=== PATIENT | male | born 1980 | race Caucasian/White ===

== ENCOUNTER 2020-09-30 19:13 | Inpatient (IN) | payer BC ==
[2020-09-30] MEDS ORDERED: Ondansetron 4 MG/2 ML SDV IVPUSH PRN (19:53)
[2020-09-30] MEDS ORDERED: Naloxone 0.4 MG/ML SDV IVPUSH PRN (20:08)
[2020-09-30] MEDS: Dextrose 5%-Lactated Ringers 1,000 ML IV SCH (20:38)
[2020-09-30] MEDS: HYDROmorphone/Normal Saline 15 MG/30 ML PCA IV PRN (21:01)
[2020-09-30] MEDS: Gabapentin 300 MG Cap PO SCH (22:15)
[2020-10-01] MEDS: Dextrose 5%-Lactated Ringers 1,000 ML IV SCH ×2 (04:11→10:40)
[2020-10-01] MEDS ORDERED: SUMAtriptan 50 MG Tab PO PRN ×2 (07:26→14:27)
--- NOTE | 2020-10-01 07:27 | PCM.HP.2 ---
H&P History of Present Illness - General Date of Service: 10/01/20 Source of Information: Patient History Limitations: Reports: No Limitations - History of Present Illness Initial Comments - Free Text/Narative: Rudy reports a month long history of mid abdominal pain. Pain is stabbing and intermittent. Gradually getting worse. Has tried Prilosec in the past and he states he would get some relief from the pain until yesterday nothing helped so he went to ED. Associated with nausea. Eating makes the pain worse. Symptom Onset Date: 08/31/20 (Approximately 1 month ago ) Duration of Symptoms: Reports: Week(s):, Getting Worse, Intermittent, Waxing/Waning Location: Reports: Abdomen Quality: Reports: Ache, Pressure, Same as Previous Episode, Sharp, Stabbing, Throbbing Severity: Moderate Improves with: Reports: Medication Worsens with: Reports: Eating Context: Reports: Sick Contact Associated Symptoms: Reports: Nausea/Vomiting - Related Data Allergies/Adverse Reactions: Allergies Allergy/AdvReac Type Severity Reaction Status Date / Time apple Allergy Difficulty Verified 09/30/20 20:37 Breathing Penicillins Allergy Cannot Verified 09/30/20 20:36 Remember Home Medications: Home Meds Gabapentin [Neurontin] 300 mg PO TID 09/30/20 [History] Lidocaine 5% [Lidoderm 5%] 1 patch TOP DAILY 09/30/20 [History] Multivit-Min/Folic/Vit K/Lycop [One-A-Day Men's Tablet] 1 each PO DAILY 09/30/20 [History] Nicotine [Nicotine Patch] 1 each TD DAILY 09/30/20 [History] Omeprazole 40 mg PO DAILY 09/30/20 [History] SUMAtriptan [Imitrex] 25 mg PO Q2HR PRN MDD 2 doses/ 24 hours 09/30/20 [History] Past Medical History HEENT History: Reports: None Gastrointestinal History: Reports: Other (See Below) Other Gastrointestinal History: RNY Neurological History: Reports: Seizure Dermatologic History: Reports: Psoriasis, Other (See Below) Other Dermatologic History: on Usha 10/12 - Past Surgical History HEENT Surgical History: Reports: None Neurological Surgical History: Reports: None Dermatological Surgical History: Reports: None Social & Family History - Tobacco Use Tobacco Use Status *Q: Former Tobacco User Years of Tobacco use: 5 Used Tobacco, but Quit: Yes Month/Year Tobacco Last Used: 02/2021 Second Hand Smoke Exposure: No - Caffeine Use Caffeine Use: Reports: Soda - Recreational Drug Use Recreational Drug Use: Yes Drug Use in Last 12 Months: Yes Recreational Drug Type: Reports: Marijuana/Hashish Recreational Drug Use Frequency: Daily Recreational Drug Last Use: 09/30/20 H&P Review of Systems - Review of Systems: Review Of Systems: See Below General: Reports: Fatigue, Weight Gain (states 30 lbs in the past 1 month ) HEENT: Reports: No Symptoms Pulmonary: Reports: No Symptoms Cardiovascular: Reports: No Symptoms Gastrointestinal: Reports: Abdominal Pain, Nausea, Vomiting Musculoskeletal: Reports: No Symptoms Skin: Reports: No Symptoms Psychiatric: Reports: No Symptoms Neurological: Reports: Other (has had 3 seizures of unknown etiology. Seeing a neurologist. ) Hematologic/Lymphatic: Reports: No Symptoms Immunologic: Reports: No Symptoms Exam - Exam Exam: See Below - Vital Signs Vital Signs: Last Vital Signs Temp 97.3 F 10/01/20 04:00 Pulse 68 10/01/20 04:00 Resp 16 10/01/20 04:00 BP 131/84 10/01/20 04:00 Pulse Ox 93 L 10/01/20 07:21 Weight: 231 lb 2 oz - Exam Quality Assessment: DVT Prophylaxis General: Alert, Oriented, Cooperative, Mild Distress HEENT: PERRLA, Conjunctiva Clear Neck: Supple, Trachea Midline Lungs: Clear to Auscultation, Normal Respiratory Effort Cardiovascular: Regular Rate, Regular Rhythm GI/Abdominal Exam: Soft, Tender (in mid epigastric area and left middle and lower quadrant ) (Male) Exam: Deferred Rectal (Males) Exam: Deferred Back Exam: Normal Inspection, Full Range of Motion Extremities: Normal Inspection, Normal Range of Motion Skin: Warm, Dry, Intact Neurological: Cranial Nerves Intact, Reflexes Equal Bilateral Neuro Extensive - Mental Status: Alert, Oriented x3, Normal Mood/Affect, Normal Cognition, Memory Intact Neuro Extensive - Motor, Sensory, Reflexes: CN II-XII Intact Psychiatric: Alert, Normal Affect, Normal Mood - Patient Data Lab Results Last 24 hrs: Laboratory Results - last 24 hr 10/01/20 10/01/20 Range/Units 04:24 04:24 WBC 8.6 (4.5-11.0) K/uL RBC 4.71 (4.30-5.90) M/uL Hgb 13.1 (12.0-15.0) g/dL Hct 42.0 (40.0-54.0) % MCV 89 (80-98) fL MCH 28 (27-31) pg MCHC 31 L (32-36) % Plt Count 318 (150-400) K/uL Neut % (Auto) 52 (36-66) % Lymph % (Auto) 32 (24-44) % Ceiba % (Auto) 11 H (2-6) % Eos % (Auto) 4 (2-4) % Baso % (Auto) 1 (0-1) % Sodium 141 (140-148) mmol/L Potassium 4.1 (3.6-5.2) mmol/L Chloride 106 (100-108) mmol/L Carbon Dioxide 28 (21-32) mmol/L Anion Gap 7.2 (5.0-14.0) mmol/L BUN 14 (7-18) mg/dL Creatinine 1.0 (0.8-1.3) mg/dL Est Cr Clr Drug Dosing 105.63 mL/min Estimated GFR (MDRD) > 60 (>60) Glucose 95 (74-106) mg/dL Calcium 8.7 (8.5-10.1) mg/dL Phosphorus 3.7 (2.5-4.9) mg/dL Magnesium 1.8 (1.8-2.4) mg/dL Ferritin 20 (8-388) ng/ml Total Bilirubin 0.3 (0.2-1.0) mg/dL AST 11 L (15-37) U/L ALT 17 (12-78) U/L Alkaline Phosphatase 96 (46-116) U/L Lactate Dehydrogenase 125 (85-227) U/L Total Protein 6.0 L (6.4-8.2) g/dL Albumin 3.3 L (3.4-5.0) g/dL Globulin 2.7 (2.3-3.5) g/dL Albumin/Globulin Ratio 1.2 (1.2-2.2) Result Diagrams: 10/01/20 04:24 10/01/20 04:24 Sepsis Event Note - Evaluation Sepsis Screening Result: No Definite Risk - Focused Exam Vital Signs: Vital Signs Temp Pulse Resp BP Pulse Ox 10/01/20 07:21 93 L 10/01/20 04:00 97.3 F 68 16 131/84 95 10/01/20 01:00 94 L 09/30/20 22:16 98.5 F 73 18 126/79 95 09/30/20 20:36 96 09/30/20 19:26 98.5 F 88 18 121/85 98 - Problem List (1) Partial small bowel obstruction SNOMED Code(s): 367809172 ICD Code: K56.600 - PARTIAL INTESTINAL OBSTRUCTION, UNSPECIFIED TO CAUSE Status: Acute Current Visit: Yes Problem List Initiated/Reviewed/Updated: Yes Orders Last 24hrs: Active Orders 24 hr Category Date Time Status Communication Order [RC] ROUTINE Care 09/30/20 19:54 Active Communication Order [RC] STAT Care 09/30/20 20:08 Active Notify Provider [RC] PRN Care 09/30/20 20:08 Active Overnight Pulse Oximetry [RC] Click to Edit Care 09/30/20 19:53 Active NIGHT WAREHOUSE SELECTOR Record [RC] PER UNIT ROUTINE Care 09/30/20 20:08 Active Pulse Oximetry [RC] CONTINUOUS Care 09/30/20 20:08 Active Telemetry Monitoring [Cardiac Monitoring] [RC] .As Care 09/30/20 19:52 Active Directed Verify Patient Consent Obtain [RC] ASDIRECTED Care 10/01/20 07:04 Active Vital Signs [RC] Q4H Care 09/30/20 19:51 Active NPO Now [Nothing per Oral Now Diet] [DIET] Diet 10/01/20 Breakfast Active Dextrose 5%-Lactated Ringers 1,000 ml Med 09/30/20 20:00 Active IV ASDIRECTED Gabapentin [Neurontin] Med 09/30/20 22:15 Active 300 mg PO TID HYDROmorphone/Normal Saline [Dilaudid NIGHT WAREHOUSE SELECTOR 15 MG in NS Med 09/30/20 20:08 Active 30 ML] See Protocol IV ASDIRECTED PRN Ketamine [Ketalar] Med 10/01/20 14:00 Ordered See Dose Instructions IV ASDIRECTED Ketamine [Ketalar] Med 10/01/20 14:00 Ordered See Dose Instructions IV BOLUS Naloxone [Narcan] Med 09/30/20 20:08 Active 0.4 mg IVPUSH Q2M PRN Ondansetron [Zofran] Med 09/30/20 19:53 Active 4 mg IVPUSH Q4H PRN SUMAtriptan [Imitrex] Med 10/01/20 07:11 Ordered 25 mg PO Q2HR PRN Tap Block [Tap Block, Pharmacy to Dose] Med 10/01/20 14:00 Once See Dose Instructions NERVRT ONETIME ONE cefOXitin [Mefoxin] 2 gm Med 10/01/20 14:00 Active Sodium Chloride 0.9% [Normal Saline] 50 ml IV ONETIME Medication Discontinuation Instructions [OM.PC] Stat Oth 09/30/20 20:08 Ordered Pulse Oximetry Continuous Monitoring [OM.PC] Routine Oth 09/30/20 19:52 Ordered Medication Orders Gabapentin (Neurontin) 300 mg PO TID [facility] Last Admin: 09/30/20 22:15 Dose: 300 mg Documented by: KASANDRA Hydromorphone HCl (Dilaudid Distributor Cleaner 15 Mg In Ns 30 Ml) 0 mg IV ASDIRECTED PRN; Protocol PRN Reason: Pain Last Admin: 09/30/20 21:01 Dose: 15 mg Documented by: EDER Dextrose/Lactated Ringer's (Dextrose 5%-Lactated Ringers) 1,000 mls @ 150 m ls/hr IV ASDIRECTED [facility] Last Admin: 10/01/20 04:11 Dose: 150 mls/hr Documented by: Infusion: 10/01/20 03:19 Dose: 150 mls/hr Documented by: Admin: 09/30/20 20:38 Dose: 150 mls/hr Documented by: KASANDRA Cefoxitin Sodium 2 gm/ Sodium (Chloride) 50 mls @ 100 mls/hr IV ONETIME ONE Stop: 10/01/20 14:29 Ketamine HCl (Ketalar) 0 mg IV BOLUS [facility] Ketamine HCl (Ketalar) 0 mg IV ASDIRECTED [facility] Naloxone HCl (Narcan) 0.4 mg IVPUSH Q2M PRN PRN Reason: Respiratory Distress Non-Formulary Medication (Tap Block, Pharmacy To Dose) 0 ml NERVRT ONETIME ONE Stop: 10/01/20 14:01 Non-Formulary Medication (Sumatriptan [Imitrex]) 25 mg PO Q2HR PRN PRN Reason: Headache Ondansetron HCl (Zofran) 4 mg IVPUSH Q4H PRN PRN Reason: Nausea/Vomiting Assessment: Partial Small Bowel Obstruction CT Scan: Hazy appearance the root of the small bosel vasculature to the right of midline with associated enlarged mesenteric lymph noeds. Primary considerations include internal hernia,mesenteric torsion or mesenteritis. Strong concern of vascular compromise. Moderate stasis in the Dawn limb and common channel suggestive of delayed transit. Scheduled for: Exploratory Laparotomy with Release of Partial Small Bowel Obstruction and Possible Lysis of Adhesions and Possible Small Bowel Resection. Case to Follow - 10/01/2020 -approximately 1400 - Derek Garza MD General Anesthesia, Tap Block, Ketamine Bolus and Ketamine Gtt. NPO Cefoxitin 2 grams IV garment alteration examiner to OR. Plan to be in hospital 3 nights and 4 days. Plans to be discharged to home. Kimberlyn Gonzalez 10/01/2020
[2020-10-01] MEDS ORDERED: Meropenem 500 MG SDV ONE (07:40)
[2020-10-01] MEDS ORDERED: Bupivacaine 0.5% 50 ML MDV ONE (07:40)
[2020-10-01] MEDS ORDERED: Lidocaine 1% with EPINEPHrine 1:100,000 50 ML MDV ONE (07:40)
[2020-10-01] MEDS ORDERED: hydrOXYzine HCL 100 MG/2 ML SDV IM PRN (07:41)
[2020-10-01] MEDS: Gabapentin 300 MG Cap PO SCH ×2 (07:41→08:04)
[2020-10-01] MEDS ORDERED: Ketamine 50 MG in Sodium Chloride 0.9% 49.5 ML IV SCH (08:00)
[2020-10-01] MEDS ORDERED: Ketamine 500 MG/5 ML MDV IV SCH ×3 (08:00→14:00)
[2020-10-01] MEDS ORDERED: Dexamethasone 4 MG/ML SDV ONE (08:45)
[2020-10-01] MEDS ORDERED: Succinylcholine 200 MG/10 ML MDV ONE (08:45)
[2020-10-01] MEDS ORDERED: Neostigmine Methylsulfate 1 MG/ML 5 ML Syringe ONE (08:45)
[2020-10-01] MEDS ORDERED: fentaNYL 250 MCG/5 ML SDV ONE ×2 (08:45→11:42)
[2020-10-01] MEDS ORDERED: Glycopyrrolate 0.2 MG/ML 5 ML MDV ONE (08:45)
[2020-10-01] MEDS ORDERED: Rocuronium 50 MG/5 ML Vial ONE (08:45)
[2020-10-01] MEDS ORDERED: Ondansetron 4 MG/2 ML SDV ONE (08:45)
[2020-10-01] MEDS ORDERED: Propofol 200 MG/20 ML SDV ONE (08:45)
[2020-10-01] MEDS ORDERED: Gabapentin 300 MG Cap PO SCH ×2 (09:00)
[2020-10-01] MEDS: HYDROmorphone/Normal Saline 15 MG/30 ML PCA IV PRN (10:35)
[2020-10-01] MEDS ORDERED: cefOXitin 2 GM in Sodium Chloride 0.9% 50 ML IV ONE ×2 (11:00→14:00)
[2020-10-01] MEDS ORDERED: Magnesium Sulfate 4.8 GM in Sodium Chloride 0.9% 250 ML IV ONE (11:00)
[2020-10-01] MEDS ORDERED: Magnesium Sulfate 3 GM in Sodium Chloride 0.9% 100 ML IV SCH (11:00)
[2020-10-01] MEDS ORDERED: Labetalol 20 MG/4 ML Syringe IVPUSH ONE (13:00)
[2020-10-01] MEDS ORDERED: Calcium Gluconate 10% 1 GM/10 ML SDV IVPUSH PRN (14:00)
[2020-10-01] MEDS ORDERED: Ondansetron 4 MG/2 ML SDV IVPUSH PRN (14:00)
[2020-10-01] MEDS ORDERED: Dextrose 5%-Lactated Ringers 1,000 ML IV SCH (14:00)
[2020-10-01] MEDS ORDERED: Metoclopramide 10 MG/2 ML SDV IVPUSH PRN (14:00)
[2020-10-01] MEDS ORDERED: Labetalol 20 MG/4 ML Syringe IVPUSH PRN (14:00)
[2020-10-01] MEDS ORDERED: diphenhydrAMINE 50 MG/ML SDV IVPUSH PRN (14:00)
[2020-10-01] MEDS ORDERED: Acetaminophen 500 MG Tab PO PRN (14:00)
[2020-10-01] MEDS: hydrOXYzine HCL 100 MG/2 ML SDV IM PRN ×2 (14:59→19:00)
[2020-10-01] MEDS: Nicotine 14 MG/24 Hr Patch TRDERM SCH (15:01)
[2020-10-01] MEDS: Acetaminophen 500 MG Tab PO SCH ×2 (15:02→21:00)
[2020-10-01] MEDS ORDERED: MVI, Adult with Vitamin K 10 ML, Thiamine 200 MG, Zinc/Copper/Manganese/Selenium 1 ML i... IV SCH ×4 (16:00)
[2020-10-01] MEDS ORDERED: Pantoprazole 40 MG Vial IVPUSH SCH (16:00)
[2020-10-01] MEDS: cefOXitin 2 GM in Sodium Chloride 0.9% 50 ML IV SCH ×2 (17:39→22:34)
[2020-10-01] MEDS: Cyclobenzaprine 10 MG Tab PO PRN (20:04)
[2020-10-01] MEDS: Celecoxib 200 MG Cap PO SCH (20:44)
[2020-10-01] MEDS: Heparin Sodium 5,000 Units/ML Vial SUBCUT SCH (20:44)
[2020-10-01] MEDS: Gabapentin 250 MG/5 ML Solution ML 470 ML Bottle PO SCH (20:44)
[2020-10-02] MEDS: HYDROmorphone/Normal Saline 15 MG/30 ML PCA IV PRN ×2 (00:42→16:34)
[2020-10-02] MEDS ORDERED: Iopamidol 612 MG/ML 50 ML SDV PO STA (03:49)
[2020-10-02] MEDS: hydrOXYzine HCL 100 MG/2 ML SDV IM PRN ×2 (04:29→10:56)
[2020-10-02] MEDS: Acetaminophen 500 MG Tab PO SCH ×3 (05:03→21:11)
[2020-10-02] MEDS: cefOXitin 2 GM in Sodium Chloride 0.9% 50 ML IV SCH ×2 (05:04→10:17)
[2020-10-02] MEDS ORDERED: hydrOXYzine HCl 25 MG Tab PO PRN (06:57)
[2020-10-02] MEDS ORDERED: Ondansetron 4 MG Tab.DIS PO PRN (06:57)
--- NOTE | 2020-10-02 08:01 | PN ---
DATE OF SERVICE: 10/02/2020 SUBJECTIVE: Rudy is postop day 1. Upper GI was normal. Pain is controlled with the COFFIN MAKER. Oral intake 2340. Urine output 2950. Granados catheter was removed yesterday. He is voiding without difficulty. Vital signs have been stable. REVIEW OF SYSTEMS: Remainder of review of systems negative for any pertinent positives and negatives. OBJECTIVE: GENERAL: Rudy Griffiths is a 40-year-old male. He is alert and orientated. VITAL SIGNS: TPR 96.5, 72, 16, blood pressure 150/90. HEENT: Negative. NECK: Supple. HEART: Regular rate and rhythm. LUNGS: Clear. ABDOMEN: Dressings dry and intact. Abdominal binder is on. EXTREMITIES: Without peripheral edema. ASSESSMENT: Exploratory laparotomy with lysis of adhesions. 1. Reduction of small bowel volvulus and closure of internal hernia. 2. Small bowel resection. 3. Secondary enteroenterostomy and reestablish the Dawn-en-Y small bowel anatomy. 4. Small bowel strictureplasty. 5. Enterotomy for decompression of the biliary pancreatic limb of the small bowel. 6. Placement of Interceed mesh. POSTOPERATIVE DIAGNOSES: 1. Partial small bowel obstruction secondary to small bowel volvulus and chronic stricture at the jejunojejunostomy. 2. Separate small bowel stricture. 3. Marked distention of the biliary pancreatic limb of the small bowel. Date of procedure: 10/01/2020. Surgeon: Derek Garza MD. PLAN: 1. Decrease IV rate to 100 mL per hour. 2. May shower. 3. Step 2 gastric bypass diet. 4. Atarax 25 mg p.o. q.4 hours for pain. 5. May bring in Humira injection for his psoriasis and psoriatic arthritis. He is to receive the Humira injection every 2 weeks. 6. Continue use of incentive spirometer. 7. We will evaluate p.r.n. or in a.m. Kimberlyn Trimble PA-C /[id number]
[2020-10-02] MEDS: Celecoxib 200 MG Cap PO SCH ×2 (08:31→21:10)
[2020-10-02] MEDS: Heparin Sodium 5,000 Units/ML Vial SUBCUT SCH ×2 (08:31→21:10)
[2020-10-02] MEDS: Nicotine 14 MG/24 Hr Patch TRDERM SCH (08:32)
[2020-10-02] MEDS: SCOPOLAMINE PATCH CHECK TOP SCH (08:32)
[2020-10-02] MEDS: Gabapentin 250 MG/5 ML Solution ML 470 ML Bottle PO SCH ×3 (08:35→21:14)
[2020-10-02] MEDS: Dextrose 5%-Lactated Ringers 1,000 ML IV SCH ×2 (08:37→10:17)
[2020-10-02] MEDS ORDERED: Celecoxib 200 MG Cap PO SCH (09:00)
[2020-10-02] MEDS ORDERED: Pantoprazole 40 MG Vial IVPUSH SCH (09:00)
[2020-10-02] MEDS: Lidocaine 5% 700 MG Patch TRDERM SCH ×2 (10:41→15:12)
--- NOTE | 2020-10-02 11:35 | CR ---
UGI Limited HISTORY: Postbariatric surgery FINDINGS: Patient swallowed water-soluble contrast. Upright views of the abdomen show no evidence of extravasation or obstruction. There is a nodular appearance to the mucosal pattern in the right colon. This likely is secondary to bowel content. IMPRESSION: Status post bariatric surgery No extravasation or obstruction seen
[2020-10-02] MEDS ORDERED: MVI, Adult with Vitamin K 10 ML, Thiamine 200 MG, Zinc/Copper/Manganese/Selenium 1 ML i... IV SCH ×4 (16:00)
[2020-10-02] MEDS ORDERED: HUMIRA 40 MG/0.4 ML SUBCUT ONE (16:30)
[2020-10-02] MEDS: Pantoprazole 40 MG Delayed-Release Granules 1 Packet PO SCH (16:38)
[2020-10-03] MEDS: hydrOXYzine HCL 100 MG/2 ML SDV IM PRN (01:03)
[2020-10-03] MEDS: Cyclobenzaprine 10 MG Tab PO PRN ×3 (01:03→18:05)
[2020-10-03] MEDS: Dextrose 5%-Lactated Ringers 1,000 ML IV SCH (01:05)
[2020-10-03] MEDS: Acetaminophen 500 MG Tab PO SCH ×3 (05:34→21:58)
[2020-10-03] MEDS: oxyCODONE 5 MG Tab PO PRN ×5 (07:04→23:08)
--- NOTE | 2020-10-03 07:44 | PN ---
DATE OF SERVICE: 10/03/2020 SUBJECTIVE: Rudy states his pain is controlled with the LAYOUT WORKER. Vital signs have been stable. Oral intake 3020. Urine output independent. Step 2 diet, and he is eating 100%. Up ambulating. He states he is passing flatus. Has no other questions or concerns. OBJECTIVE: GENERAL: Rudy Griffiths is a 40-year-old male. He is alert and orientated. VITAL SIGNS: TPR 96.3, 78, 16, and blood pressure 142/94, prior to that it was 129/83. HEENT: Negative. NECK: Supple. HEART: Regular rate and rhythm. LUNGS: Clear. ABDOMEN: Aquacel dressing is on, dry and intact. Abdominal binder is on. EXTREMITIES: Without peripheral edema. ASSESSMENT: Exploratory laparotomy with lysis of adhesions: 1. Reduction of small bowel volvulus and closure of internal hernia. 2. Small bowel resection. 3. Secondary enteroenterostomy to reestablish the Dawn-en-Y small bowel anatomy. 4. Small bowel strictureplasty. 5. Enterotomy for decompression of the biliary pancreatic limb of the small bowel. 6. Placement of Interceed mesh. POSTOPERATIVE DIAGNOSES: 1. Partial small bowel obstruction secondary to small bowel volvulus and chronic stricture at the jejunojejunostomy. 2. A separate small-bowel stricture. 3. Marked distention of the biliary pancreatic limb of the small bowel. 4. Date of procedure: 10/01/2020. Surgeon: Derek Garza MD. PLAN: 1. Saline lock IV. 2. Oxycodone 5 mg every 4 hours p.r.n. pain p.o. 3. Step 3 gastric bypass diet. 4. Increase Atarax 50 mg every 4 hours p.o. pain. 5. Discontinue LAYOUT WORKER, continuous pulse ox. 6. Discontinue IM Vistaril. 7. Dulcolax 10 mg p.o. b.i.d. 8. Colace 100 mg p.o. b.i.d. 9. We will evaluate p.r.n. or in the a.m. the patient would like to be discharged in the a.m. if he continues to progress. Kimberlyn Trimble PA-C /[id number]
[2020-10-03] MEDS: Docusate Sodium 100 MG Cap PO SCH ×3 (08:07→20:29)
[2020-10-03] MEDS: Heparin Sodium 5,000 Units/ML Vial SUBCUT SCH ×2 (08:07→19:13)
[2020-10-03] MEDS: Celecoxib 200 MG Cap PO SCH ×3 (08:07→20:29)
[2020-10-03] MEDS: Nicotine 14 MG/24 Hr Patch TRDERM SCH (08:07)
[2020-10-03] MEDS: Bisacodyl 5 MG Tab PO SCH ×3 (08:07→20:29)
[2020-10-03] MEDS: Lidocaine 5% 700 MG Patch TRDERM SCH (08:08)
[2020-10-03] MEDS: SCOPOLAMINE PATCH CHECK TOP SCH (08:08)
[2020-10-03] MEDS: Gabapentin 250 MG/5 ML Solution ML 470 ML Bottle PO SCH ×4 (08:10→20:29)
[2020-10-03] MEDS ORDERED: Cyanocobalamin (Vitamin B12) 1,000 MCG/ML SDV IM ONE (09:00)
[2020-10-03] MEDS: hydrOXYzine HCl 25 MG Tab PO PRN ×2 (13:22→21:57)
[2020-10-03] MEDS: Pantoprazole 40 MG Delayed-Release Granules 1 Packet PO SCH (16:25)
[2020-10-04] MEDS: Cyclobenzaprine 10 MG Tab PO PRN (03:04)
[2020-10-04] MEDS: oxyCODONE 5 MG Tab PO PRN ×2 (03:05→07:03)
[2020-10-04] MEDS: Acetaminophen 500 MG Tab PO SCH (07:03)
[2020-10-04] MEDS: Docusate Sodium 100 MG Cap PO SCH (08:18)
[2020-10-04] MEDS: Bisacodyl 5 MG Tab PO SCH (08:18)
[2020-10-04] MEDS: Heparin Sodium 5,000 Units/ML Vial SUBCUT SCH (08:18)
[2020-10-04] MEDS: Nicotine 14 MG/24 Hr Patch TRDERM SCH (08:18)
[2020-10-04] MEDS: Lidocaine 5% 700 MG Patch TRDERM SCH (08:19)
[2020-10-04] MEDS: Gabapentin 250 MG/5 ML Solution ML 470 ML Bottle PO SCH (08:25)
[2020-10-04] MEDS: Celecoxib 200 MG Cap PO SCH (08:54)
[2020-10-04] MEDS ORDERED: Magnesium Hydroxide 400 MG/5 ML Susp 30 ML Cup PO ONE (09:00)
--- NOTE | 2020-10-06 17:33 | OR ---
DATE OF PROCEDURE: 10/01/2020 SURGEON: Derek Garza MD PREOPERATIVE DIAGNOSES: Partial small bowel obstruction with probable small bowel volvulus. POSTOPERATIVE DIAGNOSES: 1. Partial small bowel obstruction secondary to small bowel volvulus and chronic stricture at jejunojejunostomy. 2. Separate small bowel stricture. 3. Marked distention of biliopancreatic limb of small bowel. OPERATIVE PROCEDURES: Exploratory laparotomy with: 1. Reduction of small bowel volvulus and closure of internal hernia (10501). 2. Small bowel resection (17292). 3. Secondary enteroenterostomy with reestablishment of Dawn-en-Y small bowel anatomy (85610). 4. Small bowel stricturoplasty (48745). 5. Enterotomy for decompression of biliopancreatic limb of small bowel (66157). 6. Placement of Interceed mesh to displace pelvic and abdominal wall from underlying viscera to limit recurrent adhesion formation (25121). ANESTHESIA: General. INDICATIONS FOR PROCEDURE: This is a 40-year-old who was transferred from the [facility] overnight with history of abdominal pain following a previous Dawn-en-Y gastric bypass with a CT scan suggestive of a small bowel volvulus. The patient had a continued discomfort this morning. Plan is to proceed with an exploratory laparotomy with reduction of volvulus and resection as indicated. Potential risks including bleeding and leaks from various GI tract closures, problems with recurrence, or other problems over time were all reviewed, and the patient wishes to proceed. The patient continued to be somewhat obese, and I discussed with him regarding alteration of the limb lengths of the small bowel resection required with the common limb to be reduced in length with this resulting typically in some additional weight loss, but also need to more vigorously follow nutritional lab indices more carefully and the likelihood of somewhat more frequent looser bowel movements were all gone over, and likewise, the patient wishes to proceed. DETAILS OF PROCEDURE: The patient was taken to the operating room, and after general endotracheal anesthesia was induced, a Granados catheter was inserted, and the abdomen prepped and draped. A midline incision from the umbilicus roughly a handsbreadth toward the xiphoid was made and carried down through the full-thickness abdominal wall. Upon entering the peritoneal cavity, general exploration was undertaken. Much of the small bowel had a vague mello appearance consistent with some venous hypertension. Further investigation revealed a small bowel volvulus through the leaves of the jejunojejunostomy from a right to left direction identifying the small bowel at the ileocecal valve. The volvulus was then reduced, and at that point, all the bowel became pink and well perfused in appearance. The patient did have a fixed stricture at the point where the Dawn limb entered the jejunojejunostomy. Decision was made to resect that area. The small bowel was then divided at the 3 points of the jejunojejunostomy with ZENY petty loads and the underlying mesentery divided with ZENY mesenteric loads and a segment of small bowel was delivered from the field. The biliopancreatic limb was noted to be markedly distended and a small enterotomy was then placed into the biliopancreatic limb in the divided end and the Grimes sump tube was placed decompressing that segment of the small bowel. At that point, the initial enteroenterostomy between what had been the distal-most biliopancreatic limb and the proximal-most common limb was accomplished with internal firing of the Endo-ZENY 60 mm stapler. Common opening was closed transversely with the same stapler. Angles of anastomosis were reinforced with 3-0 Vicryl stitch. The mesenteric defect closed with a 2-0 silk stitch. The small bowel Dawn-en-Y anatomy was then reestablished. The Dawn limb was noted at this point to be 200 cm, and we then selected the secondary anastomosis to be 200 cm proximal to the ileocecal valve given the patient had a common limb of 200 cm. Same sequence of mitch was then accomplished as for the first anastomosis and as was the closure of the angles anastomosed of the mesenteric defect. The biliopancreatic limb at this point was noted to be at 340 cm. There was an area of stricturing in the biliopancreatic limb with an adjacent chronic adhesion formation. At that level, the bowel was flipped over on itself and a small enterotomy made at the anterior mesenteric border and internal firing of the Endo-ZENY 60 mm stapler followed by 30 mm stapler internally was then accomplished and the common opening closed transversely with ZENY stapler. Angles were anastomosed and reinforced with some 3-0 Vicryl stitch. In this case, there was no mesenteric defect to close. The abdomen at this point was irrigated with meropenem-containing saline solution. Interceed mesh was then placed underneath the incision, from there down toward the pelvis to limit recurrent adhesion formation and midline fascia approximated with a #2 Vicryl stitch, the subcutaneous tissue with 2 layers of 3-0 and 4-0 Vicryl stitch, and the skin with mitch. Prior to closure, bilateral transversus abdominis plane blocks were placed and the incision was anesthetized with 1% lidocaine mixed with Marcaine as well. Then, the procedure was concluded. The patient was taken to the recovery room in satisfactory condition. Derek Garza MD /[id number]
--- NOTE | 2020-10-07 10:26 | DISCH ---
FINAL DIAGNOSES: 1. Partial small bowel obstruction secondary to small bowel volvulus and chronic obstruction at jejunojejunostomy. 2. Separate small bowel stricture. 3. Marked distention of biliopancreatic limb of small bowel. SECONDARY DIAGNOSES: 1. Bariatric surgery status. 2. Generalized anxiety disorder. 3. Hereditary and idiopathic peripheral neuropathy. 4. Benzodiazepine withdrawal and cannabis related disorder. OPERATIVE PROCEDURES: Done on 10/01, exploratory laparotomy with lysis of adhesions and: 1. Reduction of small bowel volvulus and closure of internal hernia. 2. Small bowel resection. 3. Separate enteroenterostomy to reestablish Dawn-en-Y small bowel anatomy. 4. Small bowel stricturoplasty. 5. Enterotomy for decompression of biliopancreatic limb of small bowel. 6. Placement of Interceed mesh to limit recurrent adhesion formation between the abdominal and pelvic wall and underlying viscera. SUMMARY: This is a 40-year-old who was seen in the [facility] emergency room, diagnosed with what appeared to be a small bowel volvulus and associated small bowel obstruction. He was transferred here, and because of progressive significant discomfort, underwent exploratory laparotomy the morning following admission with the above-noted findings. Clinically, he has done well at this point. He did have the small bowel limb lengths adjusted to facilitate some additional weight loss as outlined in the operative report. Otherwise, at this point, he will be discharged home with a step 3 diet until the 1st appointment, which will be with Kimberlyn Trimble at [facility] on 09/12/2020, and he will be on his usual medications plus Tylenol 1 g p.o. q.6 hours p.r.n.; oxycodone 5 mg p.o. q.4 hours p.r.n., #40; Flexeril 10 mg p.o. t.i.d. p.r.n. muscle spasm, #30, refill x1; and also two doses of Milk of Magnesia to facilitate bowel movement as indicated. /[id number]
== END 2020-10-04 10:22 | disposition home or self-care (01) | DRG 221 ==
LOC: JP.MS 19:13
PROVIDERS: ADMIT Surgery; ATTEND Surgery
PROC: 0DS80ZZ Reposition Small Intestine, Open Approach (ICD-10-PCS; principal; 2020-09-30)
PROC: 0DB80ZZ Excision of Small Intestine, Open Approach (ICD-10-PCS; 2020-09-30)
PROC: 0D180Z8 Bypass Small Intestine to Small Intestine, Open Approach (ICD-10-PCS; 2020-09-30)
PROC: 3E0M05Z Introduction of Adhesion Barrier into Peritoneal Cavity, Open Approach (ICD-10-PCS; 2020-09-30)
PROC: 0DQV0ZZ Repair Mesentery, Open Approach (ICD-10-PCS; 2020-09-30)
DX: K91.89 Other postprocedural complications and disorders of digestive system (principal); K56.2 Volvulus; R56.9 Unspecified convulsions; K46.9 Unspecified abdominal hernia without obstruction or gangrene; Z79.899 Other long term (current) drug therapy; Z87.891 Personal history of nicotine dependence; Z20.822 Contact with and (suspected) exposure to COVID-19
CPT/HCPCS: 36415; 74240; 74240-26; 80053; 82728; 83605; 83615; 83735; 84100; 85025; 88307; 94762; A9270-GY; C9113; J0171; J0330; J0694; J1100; J1170; J1644; J2185; J2405; J2704; J2710; J2795; J3010; J3410; J3411; J3420; J3475; J3490; J7050; J7121; Q9967; U0002

== ENCOUNTER 2021-01-30 21:16 | Emergency (ER) | payer SELFPAY ==
[2021-01-30] MEDS ORDERED: Sodium Chloride 0.9% 10 ML Syringe FLUSH PRN (21:46)
[2021-01-30] MEDS ORDERED: Sodium Chloride 0.9% 10 ML SDV FLUSH ONE (22:37)
[2021-01-30] MEDS ORDERED: Iopamidol 612 MG/ML 150 ML Bottle IV PRN (22:37)
[2021-01-30] MEDS ORDERED: Sodium Chloride 0.9% 100 ML IV SCH (22:45)
[2021-01-30] MEDS ORDERED: Aluminum Hydroxide/Magnesium Hydroxide/Simethicone Susp 30 ML Cup PO STA (23:38)
[2021-01-31] MEDS ORDERED: Ketorolac 30 MG/ML SDV IVPUSH ONE (00:58)
--- NOTE | 2021-01-31 01:05 | CRLCT ---
For Patients: As a result of the Century Cures Act, medical imaging exams and procedure reports are released immediately into your electronic medical record. You may view this report before your referring provider. If you have questions, please contact your health care provider. INDICATION: Abdominal pain TECHNIQUE: Axial images were obtained from the diaphragm to the pubic symphysis. Reformats were obtained in the coronal and sagittal plane. IV Contrast: 147 cc Isovue-300 Oral Contrast: None COMPARISON: Abdomen and pelvis CT 09/30/2020 FINDINGS: Lower chest: Basilar discoid atelectasis. Liver: Unremarkable. Normal in size and attenuation. No masses. Gallbladder and bile ducts: Unremarkable. No stones or inflammation. No biliary dilatation. Spleen: Unremarkable. Normal in size without mass. Pancreas: Unremarkable. No mass or inflammation. Adrenal glands: Unremarkable. No nodules. Kidneys: Unremarkable. No masses, stones, or hydronephrosis. Vasculature: Unremarkable. GI tract: The patient is status post gastric bypass. The small bowel is decompressed. Note is made of a supraumbilical ventral hernia with small bowel in the hernia sac (series 4, image 74). Mild rectus diastasis at in the epigastric region. Subcentimeter mesenteric lymph nodes. Pelvis: Trace free fluid in the pelvis. Bladder unremarkable. Bones: Unremarkable for age. IMPRESSION: 1. Status post gastric bypass. No evidence of obstruction. Increased number of subcentimeter mesenteric lymph nodes although similar to the prior exam. 2. Ventral supraumbilical hernia with small bowel in the hernia sac although without evidence of obstruction. Please note that all CT scans at this facility use dose modulation, iterative reconstruction, and/or weight-based dosing when appropriate to reduce radiation dose to as low as reasonably achievable. Dictated by Richard Dominguez MD @ 01/31/2021 1:02:[address] Richard Dominguez @ Jan 31 2021 1:02AM
--- NOTE | 2021-01-31 01:17 | EDM.PDOC ---
ED HPI GENERAL MEDICAL PROBLEM - General Chief Complaint: Abdominal Pain Stated Complaint: S/P BOWEL OBSTRUCTION FEB Time Seen by Provider: 01/30/21 21:34 Source of Information: Reports: Patient History Limitations: Reports: No Limitations - History of Present Illness INITIAL COMMENTS - FREE TEXT/NARRATIVE: Rudy is a 40-year-old male presenting to the ED for evaluation of increasing abdominal pain, abdominal distention, and loose bowels with episodes of bowel incontinence. The patient has a history of a Dawn-en-Y gastric bypass and has been suffering from dumping syndrome. He was hospitalized in September of this year for a small bowel obstruction and underwent surgery with Dr. Garza to break up adhesions. Patient does have a ventral hernia in the same region. He rep orts that the symptoms have been worsening over the course of the last week with his belly becoming more more distended. He denies any fever, chills, cough or shortness of breath, nausea or vomiting. His appetite has been unremarkable. Abdominal Pain Score (Numeric/FACES): 5 - Related Data Allergies Allergy/AdvReac Type Severity Reaction Status Date / Time apple Allergy Difficulty Verified 01/30/21 21:34 Breathing Penicillins Allergy Cannot Verified 01/30/21 21:34 Remember Home Meds: Home Meds Multivit-Min/Folic/Vit K/Lycop [One-A-Day Men's Tablet] 1 each PO DAILY 09/30/20 [History] Nicotine [Nicotine Patch] 1 each TD DAILY 09/30/20 [History] L.acidoph,Paracasei, B.lactis [Probiotic] 1 tab PO DAILY 01/30/21 [History] Past Medical History HEENT History: Reports: Impaired Vision Gastrointestinal History: Reports: Other (See Below) Other Gastrointestinal History: RNY Neurological History: Reports: Seizure Dermatologic History: Reports: Psoriasis, Other (See Below) Other Dermatologic History: on Usha 10/12 - Past Surgical History HEENT Surgical History: Reports: None GI Surgical History: Reports: Bariatric Procedure, Small Bowel Neurological Surgical History: Reports: None Dermatological Surgical History: Reports: None Social & Family History - Family History Family Medical History: No Pertinent Family History - Tobacco Use Tobacco Use Status *Q: Current Every Day Tobacco User Years of Tobacco use: 10 Packs/Tins Daily: 0.5 - Caffeine Use Caffeine Use: Reports: Soda - Recreational Drug Use Recreational Drug Use: No ED ROS GENERAL - Review of Systems Review Of Systems: See Below Constitutional: Reports: No Symptoms HEENT: Reports: No Symptoms Respiratory: Reports: No Symptoms Cardiovascular: Reports: No Symptoms Endocrine: Reports: No Symptoms GI/Abdominal: Reports: Abdominal Pain (Generalized abdominal pain), Diarrhea (With episodes of bowel incontinence), Distension (Gradual increase of abdominal distention especially in the left upper quadrant), Nausea (Episodes of mild nausea without vomiting), Stool Incontinence (Episodic) Musculoskeletal: Reports: No Symptoms Skin: Reports: No Symptoms Neurological: Reports: No Symptoms Psychiatric: Reports: No Symptoms Hematologic/Lymphatic: Reports: No Symptoms Immunologic: Reports: No Symptoms ED EXAM, GI/ABD - Physical Exam Exam: See Below Exam Limited By: No Limitations General Appearance: Alert, Anxious, Mild Distress Eyes: Bilateral: EOMI Throat/Mouth: Normal Inspection, Normal Oropharynx, Normal Voice, No Airway Compromise, Inflammation Head: Atraumatic, Normocephalic Neck: Normal Inspection, Supple, Non-Tender, Full Range of Motion Respiratory/Chest: No Respiratory Distress, Lungs Clear, Normal Breath Sounds Cardiovascular: Normal Peripheral Pulses, Regular Rate, Rhythm, No Murmur GI/Abdominal Exam: Soft, Distended (Abdominal distention especially across the upper abdomen with tympany to percussion throughout the abdomen.), Tender (Mild generalized tenderness), Abnormal Bowel Sounds (Slightly increased bowel sounds), Hernia (Ventral hernia around the area of the incision). No: Guarding, Rigid, Rebound Back Exam: Normal Inspection Extremities: Normal Inspection Neurological: Alert, Oriented, Normal Cognition, No Motor/Sensory Deficits Psychiatric: Normal Affect, Anxious Skin Exam: Warm, Dry, Intact, Normal Color Course - Vital Signs Last Recorded V/S: Last Vital Signs Temp 36.8 C 01/30/21 21:36 Pulse 65 01/30/21 21:36 Resp 14 01/30/21 21:36 BP 144/84 H 01/30/21 21:36 Pulse Ox 93 L 01/30/21 21:36 - Orders/Labs/Meds Orders: Active Orders 24 hr Category Date Time Status Iopamidol [Isovue-300 (61%)] Med 01/30/21 22:37 Active 150 ml IV . DIRECTED PRN Sodium Chloride 0.9% [Normal Saline] 100 ml Med 01/30/21 22:45 Active IV ASDIRECTED Sodium Chloride 0.9% [Saline Flush] Med 01/30/21 21:46 Active 10 ml FLUSH ASDIRECTED PRN Saline Lock Insert [OM.PC] Routine Oth 01/30/21 21:46 Ordered Medication Orders Sodium Chloride (Normal Saline) 100 mls @ 3 mls/sec IV ASDIRECTED JADON Last Admin: 01/30/21 23:29 Dose: 3 mls/sec Documented by: DECRMIC Iopamidol (Iopamidol 612 Mg/Ml 150 Ml Bottle) 150 ml IV . DIRECTED PRN PRN Reason: RADIOLOGY EXAM Stop: 01/31/21 22:38 Last Admin: 01/30/21 23:29 Dose: 150 ml Documented by: DECRMIC Sodium Chloride (Sodium Chloride 0.9% 10 Ml Syringe) 10 ml FLUSH ASDIRECTED PRN PRN Reason: Keep Vein Open Last Admin: 01/30/21 22:38 Dose: 10 ml Documented by: JUN Labs: Laboratory Tests 01/30/21 01/30/21 Range/Units 21:55 21:55 WBC 7.2 (4.5-11.0) K/uL RBC 4.28 L (4.30-5.90) M/uL Hgb 12.1 (12.0-15.0) g/dL Hct 38.3 L (40.0-54.0) % MCV 90 (80-98) fL MCH 28 (27-31) pg MCHC 32 (32-36) % Plt Count 266 (150-400) K/uL Neut % (Auto) 45.6 (36-66) % Lymph % (Auto) 39.1 (24-44) % Grundy % (Auto) 10.7 H (2-6) % Eos % (Auto) 3.2 (2-4) % Baso % (Auto) 1.4 H (0-1) % Sodium 146 (140-148) mmol/L Potassium 4.0 (3.6-5.2) mmol/L Chloride 109 H (100-108) mmol/L Carbon Dioxide 29 (21-32) mmol/L Anion Gap 12.0 (5.0-14.0) mmol/L BUN 17 (7-18) mg/dL Creatinine 1.0 (0.8-1.3) mg/dL Est Cr Clr Drug Dosing 105.63 mL/min Estimated GFR (MDRD) > 60 (>60) Glucose 88 (74-106) mg/dL Calcium 8.6 (8.5-10.1) mg/dL Total Bilirubin 0.6 D (0.2-1.0) mg/dL AST 18 (15-37) U/L ALT 21 (12-78) U/L Alkaline Phosphatase 80 (46-116) U/L Total Protein 6.0 L (6.4-8.2) g/dL Albumin 3.4 (3.4-5.0) g/dL Globulin 2.6 (2.3-3.5) g/dL Albumin/Globulin Ratio 1.3 (1.2-2.2) Lipase 83 (73-393) U/L Meds: Medications Generic Name Dose Route Start Last Admin Trade Name Marshalq PRN Reason Stop Dose Admin Sodium Chloride 100 mls @ 3 mls/sec 01/30/21 22:45 01/30/21 23:29 Normal Saline IV 3 mls/sec ASDIRECTED JADON Administration Iopamidol 150 ml 01/30/21 22:37 01/30/21 23:29 Iopamidol 612 Mg/Ml 150 Ml Bottle IV 01/31/21 22:38 150 ml . DIRECTED PRN Administration RADIOLOGY EXAM Sodium Chloride 10 ml 01/30/21 21:46 01/30/21 22:38 Sodium Chloride 0.9% 10 Ml Syringe FLUSH 10 ml ASDIRECTED PRN Administration Keep Vein Open Discontinued Medications Generic Name Dose Route Start Last Admin Trade Name Marshalq PRN Reason Stop Dose Admin Al Hydroxide/Mg Hydroxide 30 ml 01/30/21 23:38 01/30/21 23:50 Aluminum Hydroxide/Magnesium Hydroxide/Simethicone Susp 30 Ml Cup PO 01/30/21 23:39 30 ml ONETIME STA Administration Ketorolac Tromethamine 30 mg 01/31/21 00:58 Ketorolac 30 Mg/Ml Sdv IVPUSH 01/31/21 00:59 ONETIME ONE Sodium Chloride 10 ml 01/30/21 22:37 01/30/21 23:27 Sodium Chloride 0.9% 10 Ml Sdv FLUSH 01/30/21 22:38 10 ml ONETIME ONE Administration - Radiology Interpretation Free Text/Narrative:: I reviewed the CT of the abdomen and pelvis with contrast. The patient does have a ventral hernia containing a small amount of small bowel. There is no evidence for obstruction. He does have a copious amount of colonic flatus and some stool. The small bowel is decompressed. There is a small amount of free fluid in the pelvis. There is no free air. - Re-Assessments/Exams Free Text/Narrative Re-Assessment/Exam: 01/31/21 01:16 I reviewed the patient's labs including a CBC, comprehensive metabolic panel, and lipase. All of these are normal. Patient underwent a CT of the abdomen and pelvis demonstrating a copious amount of colonic stool and flatus without evidence for either a small or large bowel obstruction. He does have a ventral hernia containing loop of small bowel but there is no evidence of incarceration or obstruction. I did recommend the patient use a simethicone- based medication like Beto, Di-Gel, or Gas-X to help break up the excessive flatus which is likely causing the bloating and abdominal pain. I believe the diarrhea and intermittent episodes of stool incontinence are due to his dumping syndrome which has been chronic since he had his Dawn-en-Y. At this time, the patient is suitable for discharge home in satisfactory condition. Patient was given Toradol for pain prior to discharge. Departure - Departure Time of Disposition: 01:18 Disposition: Home, Self-Care 01 Clinical Impression: Generalized abdominal pain, Excessive flatus, Abdominal bloating with cramps, History of Dawn-en-Y gastric bypass - Discharge Information Instructions: Abdominal Pain, Adult, [id number], Abdominal Bloating Referrals: Johnny Montero MD [Primary Care Provider] - Care Plan Goals: I recommend picking up one of the [id number] simethicone-based anti-gas medications like Gas-X, Beto, or Di-Gel. Your work-up today has shown an excessive amount of colonic flatus which is causing you distress. I believe the diarrhea is likely due to the dumping syndrome. There was no evidence in your work-up today of any significant laboratory abnormalities and your CAT scan did not show any evidence of any bowel obstruction. Follow-up with Dr. Garza as needed. You do have a ventral hernia in the area where you had surgery so you may want to discuss this with him in the future. Sepsis Event Note (ED) - Evaluation Sepsis Screening Result: No Definite Risk - Focused Exam Vital Signs: Vital Signs Temp Pulse Resp BP Pulse Ox 01/30/21 21:36 36.8 C 65 14 144/84 H 93 L 01/30/21 21:28 36.8 C 65 14 144/84 H 93 L - Problem List & Annotations (1) Abdominal bloating with cramps SNOMED Code(s): 862281665 Code(s): R14.0 - ABDOMINAL DISTENSION (GASEOUS); R10.9 - UNSPECIFIED ABDOMINAL PAIN Status: Acute Priority: High Current Visit: Yes (2) Excessive flatus SNOMED Code(s): 97454025 Code(s): R14.3 - FLATULENCE Status: Acute Priority: High Current Visit: Yes (3) Generalized abdominal pain SNOMED Code(s): 203704978 Code(s): R10.84 - GENERALIZED ABDOMINAL PAIN Status: Acute Priority: High Current Visit: Yes (4) History of Dawn-en-Y gastric bypass SNOMED Code(s): 475894092 Code(s): Z98.84 - BARIATRIC SURGERY STATUS Status: Chronic Priority: Medium Current Visit: Yes - Problem List Review Problem List Initiated/Reviewed/Updated: Yes - My Orders Last 24 Hours: My Active Orders 01/30/21 21:46 Sodium Chloride 0.9% [Saline Flush] 10 ml FLUSH ASDIRECTED PRN Saline Lock Insert [OM.PC] Routine 01/30/21 22:37 Iopamidol [Isovue-300 (61%)] 150 ml IV . DIRECTED PRN 01/30/21 22:45 Sodium Chloride 0.9% [Normal Saline] 100 ml IV ASDIRECTED - Assessment/Plan Last 24 Hours: My Active Orders 01/30/21 21:46 Sodium Chloride 0.9% [Saline Flush] 10 ml FLUSH ASDIRECTED PRN Saline Lock Insert [OM.PC] Routine 01/30/21 22:37 Iopamidol [Isovue-300 (61%)] 150 ml IV . DIRECTED PRN 01/30/21 22:45 Sodium Chloride 0.9% [Normal Saline] 100 ml IV ASDIRECTED
== END 2021-01-31 01:28 | disposition home or self-care (01) ==
LOC: JP.ED 21:16
DX: R10.84 Generalized abdominal pain (principal); R14.0 Abdominal distension (gaseous); R14.3 Flatulence; Z98.84 Bariatric surgery status; Z72.0 Tobacco use; Z88.0 Allergy status to penicillin; Z91.018 Allergy to other foods
CPT/HCPCS: 36415; 74177; 80053; 83690; 85025; 96374; 99284; A9270; J1885; Q9967

== ENCOUNTER 2022-05-18 05:21 | Inpatient (IN) | payer MEDICAID ==
[2022-05-18] MEDS ORDERED: Gabapentin 300 MG Cap PO ONE (05:30)
[2022-05-18] MEDS ORDERED: Dextrose 5%-Lactated Ringers 1,000 ML IV SCH ×2 (06:00→11:30)
[2022-05-18 06:45] LABS: ESTIMATED GFR 111 mL/min (>60)
[2022-05-18] MEDS ORDERED: Lidocaine 1% with EPINEPHrine 1:100,000 50 ML MDV ONE (06:47)
[2022-05-18] MEDS ORDERED: Bupivacaine 0.5% 50 ML MDV ONE (06:47)
[2022-05-18] MEDS ORDERED: Meropenem 500 MG SDV ONE (06:48)
[2022-05-18] MEDS ORDERED: ceFAZolin 2 GM in Sodium Chloride 0.9% 50 ML IV ONE (07:00)
[2022-05-18] MEDS ORDERED: fentaNYL 250 MCG/5 ML SDV ONE ×2 (07:09→08:24)
[2022-05-18] MEDS ORDERED: Dexamethasone 4 MG/ML SDV ONE (07:10)
[2022-05-18] MEDS ORDERED: Neostigmine Methylsulfate 1 MG/ML 5 ML Syringe ONE (07:10)
[2022-05-18] MEDS ORDERED: Rocuronium 50 MG/5 ML Vial ONE (07:10)
[2022-05-18] MEDS ORDERED: Propofol 200 MG/20 ML SDV ONE (07:10)
[2022-05-18] MEDS ORDERED: Glycopyrrolate 0.2 MG/ML 5 ML MDV ONE (07:10)
[2022-05-18] MEDS ORDERED: Succinylcholine 200 MG/10 ML MDV ONE (07:10)
[2022-05-18] MEDS ORDERED: Ondansetron 4 MG/2 ML SDV ONE (07:10)
[2022-05-18] MEDS ORDERED: Naloxone 0.4 MG/ML SDV IVPUSH PRN (07:32)
[2022-05-18] MEDS ORDERED: diphenhydrAMINE 50 MG/ML SDV IVPUSH PRN ×2 (07:32→12:00)
[2022-05-18] MEDS ORDERED: Ondansetron 4 MG/2 ML SDV IVPUSH PRN ×2 (07:32→12:00)
[2022-05-18] MEDS ORDERED: diphenhydrAMINE 25 MG Cap PO PRN (07:32)
[2022-05-18] MEDS ORDERED: Ketamine 500 MG/5 ML MDV IV SCH (07:45)
[2022-05-18] MEDS ORDERED: Ketamine 22 MG in Sodium Chloride 0.9% 19.78 ML IV SCH (07:45)
[2022-05-18] MEDS ORDERED: Naloxone 0.4 MG/ML SDV IV PRN (08:00)
[2022-05-18] MEDS ORDERED: Linezolid 600 MG/300 ML Premix Bag IRR ONE (08:38)
[2022-05-18] MEDS: HYDROmorphone/Normal Saline 6 MG/30 ML PCA Vial IV PRN ×2 (09:15→18:02)
[2022-05-18 09:19] LABS: HEMOGLOBIN A1C 4.6 % (4.5-6.2)
[2022-05-18] MEDS ORDERED: Labetalol 20 MG/4 ML Syringe ONE (09:20)
[2022-05-18] MEDS ORDERED: Lactated Ringers 1,000 ML ONE (09:43)
[2022-05-18] MEDS ORDERED: Metoclopramide 10 MG/2 ML SDV IVPUSH PRN (12:00)
[2022-05-18] MEDS ORDERED: Labetalol 20 MG/4 ML Syringe IVPUSH PRN (12:00)
[2022-05-18] MEDS ORDERED: Acetaminophen 500 MG Tab PO PRN (12:00)
[2022-05-18] MEDS: Pantoprazole 40 MG Vial IVPUSH SCH (12:40)
[2022-05-18] MEDS: cefOXitin 2 GM in Sodium Chloride 0.9% 50 ML IV SCH ×2 (13:50→19:26)
[2022-05-18] MEDS: Acetaminophen 500 MG Tab PO SCH ×2 (14:39→22:12)
[2022-05-18] MEDS: MVI, Adult with Vitamin K 10 ML, Thiamine 200 MG, Zinc/Copper/Manganese/Selenium 1 ML i... IV SCH ×4 (16:08)
[2022-05-18] MEDS: Cyclobenzaprine 10 MG Tab PO PRN (17:58)
[2022-05-18] MEDS: Heparin Sodium 5,000 Units/ML Vial SUBCUT SCH (18:00)
[2022-05-19] MEDS: cefOXitin 2 GM in Sodium Chloride 0.9% 50 ML IV SCH ×2 (02:21→08:04)
[2022-05-19] MEDS: hydrOXYzine HCL 100 MG/2 ML SDV IM PRN ×4 (03:12→19:50)
[2022-05-19] MEDS: Cyclobenzaprine 10 MG Tab PO PRN ×3 (03:12→22:29)
[2022-05-19] MEDS: HYDROmorphone/Normal Saline 6 MG/30 ML PCA Vial IV PRN ×4 (03:17→22:29)
[2022-05-19] MEDS ORDERED: Iopamidol 612 MG/ML 50 ML SDV PO STA (04:07)
[2022-05-19 04:57] LABS: ESTIMATED GFR 111 mL/min (>60)
[2022-05-19] MEDS: Heparin Sodium 5,000 Units/ML Vial SUBCUT SCH ×2 (05:21→18:09)
[2022-05-19] MEDS: Acetaminophen 500 MG Tab PO SCH ×3 (05:22→21:31)
[2022-05-19] MEDS ORDERED: Ondansetron 4 MG Tab.DIS PO PRN (07:56)
[2022-05-19] MEDS ORDERED: Dextrose 5%-Lactated Ringers 1,000 ML IV SCH (08:00)
[2022-05-19] MEDS: Sodium Ferric Gluconate Cmplex 250 MG in Sodium Chloride 0.9% 100 ML IV SCH (09:22)
[2022-05-19] MEDS: Celecoxib 200 MG Cap PO SCH ×2 (09:28→20:00)
[2022-05-19] MEDS: Pantoprazole 40 MG Vial IVPUSH SCH (12:23)
[2022-05-19] MEDS: MVI, Adult with Vitamin K 10 ML, Thiamine 200 MG, Zinc/Copper/Manganese/Selenium 1 ML i... IV SCH ×4 (15:39)
[2022-05-20] MEDS: HYDROmorphone/Normal Saline 6 MG/30 ML PCA Vial IV PRN (02:31)
[2022-05-20] MEDS: Acetaminophen 500 MG Tab PO SCH (05:45)
[2022-05-20] MEDS: Heparin Sodium 5,000 Units/ML Vial SUBCUT SCH (05:45)
[2022-05-20] MEDS ORDERED: oxyCODONE 5 MG Tab PO PRN (07:09)
[2022-05-20] MEDS: Celecoxib 200 MG Cap PO SCH (08:50)
[2022-05-20] MEDS ORDERED: Cyanocobalamin (Vitamin B12) 1,000 MCG/ML SDV IM ONE (09:00)
[2022-05-20] MEDS: Sodium Ferric Gluconate Cmplex 250 MG in Sodium Chloride 0.9% 100 ML IV SCH (09:56)
[2022-05-20] MEDS ORDERED: Pantoprazole 40 MG Tab.CR PO SCH (11:30)
== END 2022-05-20 10:02 | disposition home or self-care (01) | DRG 329 ==
LOC: JP.2SS 05:21 → JP.SDSSCHI 05:21 → UNDOADMIN 05:21 → JP.SDS 05:21 → EDSTATUS 09:15 → JP.2SS 10:45 → JP.MS 12:31
PROVIDERS: ADMIT Surgery; ATTEND Surgery
PROC: 0WUF0JZ Supplement Abdominal Wall with Synthetic Substitute, Open Approach (ICD-10-PCS; principal; 2022-05-18)
PROC: 0DS80ZZ Reposition Small Intestine, Open Approach (ICD-10-PCS; 2022-05-18)
PROC: 0WUF0JZ Supplement Abdominal Wall with Synthetic Substitute, Open Approach (ICD-10-PCS; 2022-05-18)
PROC: 0DB80ZZ Excision of Small Intestine, Open Approach (ICD-10-PCS; 2022-05-18)
PROC: 0DTN0ZZ Resection of Sigmoid Colon, Open Approach (ICD-10-PCS; 2022-05-18)
PROC: 0DTP0ZZ Resection of Rectum, Open Approach (ICD-10-PCS; 2022-05-18)
PROC: 0FT40ZZ Resection of Gallbladder, Open Approach (ICD-10-PCS; 2022-05-18)
PROC: 3E0M05Z Introduction of Adhesion Barrier into Peritoneal Cavity, Open Approach (ICD-10-PCS; 2022-05-18)
DX: K42.0 Umbilical hernia with obstruction, without gangrene (principal); K56.2 Volvulus; K80.10 Calculus of gallbladder with chronic cholecystitis without obstruction; K91.2 Postsurgical malabsorption, not elsewhere classified; F33.0 Major depressive disorder, recurrent, mild; K43.0 Incisional hernia with obstruction, without gangrene; E53.8 Deficiency of other specified B group vitamins; K21.9 Gastro-esophageal reflux disease without esophagitis; H90.2 Conductive hearing loss, unspecified; F12.90 Cannabis use, unspecified, uncomplicated; E11.9 Type 2 diabetes mellitus without complications; F15.90 Other stimulant use, unspecified, uncomplicated; F90.9 Attention-deficit hyperactivity disorder, unspecified type; Z98.84 Bariatric surgery status; Z86.16 Personal history of COVID-19
CPT/HCPCS: 36415; 74240; 80053; 80305-QW; 82306; 82525; 82607; 82728; 82746; 83036; 83735; 84100; 84425; 84590; 84630; 85025; 88302; 88304; 88307; A9270-GY; C1713; C1781; C9113; J0171; J0330; J0690; J0694; J1100; J1170; J1644; J2020; J2185; J2405; J2704; J2710; J2795; J2916; J3010; J3410; J3411; J3420; J3490; J7120; J7121; Q9967

== ENCOUNTER 2024-11-12 07:47 | Day surgery (SDC) | payer MEDICAID ==
[2024-11-12] MEDS ORDERED: fentaNYL 50 MCG/ML SDV ONE (08:11)
[2024-11-12] MEDS ORDERED: Midazolam 1 MG/ML 2 ML SDV ONE (08:11)
[2024-11-12] MEDS ORDERED: Propofol 200 MG/20 ML SDV ONE ×3 (08:12→09:16)
[2024-11-12] MEDS: Lactated Ringers 1,000 ML IV SCH (08:57)
== END 2024-11-12 10:30 | disposition home or self-care (01) ==
LOC: JP.SDS 07:47
PROVIDERS: ATTEND Surgery
DX: K22.89 Other specified disease of esophagus (principal); K95.89 Other complications of other bariatric procedure; K59.00 Constipation, unspecified; I10 Essential (primary) hypertension; K21.9 Gastro-esophageal reflux disease without esophagitis; Z98.0 Intestinal bypass and anastomosis status; Z98.84 Bariatric surgery status
CPT/HCPCS: 00813; 43239; 45378; J2250; J2704; J3010; J7120